=== PATIENT | male | born 1955 | race Caucasian/White ===

== ENCOUNTER 2020-05-13 15:37 | Emergency (ER) | payer MEDICAID ==
[~2020-05-13] VITALS: Ht 177.8 cm; Wt 99.8 kg
--- NOTE | 2020-05-13 15:40 | NUR ---
Placed in room 01 . Placed on teaching dietitian, blood pressure machine and pulse oximeter. To gown for exam. Side rails up.
[2020-05-13 15:45] VITALS: BP_SYST 140
--- NOTE | 2020-05-13 15:45 | NUR ---
PT CAME IN WITH CO CHEST PAIN STARTING YESTERDAY. REPORTS NO CARDIAC HISTORY. 02/12 SUBSTERNAL PAIN. REPORTS HE IS TAKING CARE OF HIS AT HOME WHO IS ILL. INCREASED STRESS/ANXIETY. NO SOB. AAOX4. V/S STABLE
--- NOTE | 2020-05-13 15:45 | NUR ---
EKG performed at by [facility]. Physician given copy of EKG for review.
--- NOTE | 2020-05-13 15:58 | NUR ---
# 18 gauge angiocath placed to RFA. Use of asceptic technique. Opsite placed over site. Blood return noted. Blood for lab drawn from site. Flushed with 10 cc of normal saline. No evidence of infiltration noted. Patient tolerated well. BLOOD SPECIMENS COLLECTED AND SENT TO THE LAB
--- NOTE | 2020-05-13 16:10 | NUR ---
XRAY AT BEDSIDE
--- NOTE | 2020-05-13 16:10 | NUR ---
Samson godwin in [facility] - 05/13/20 at 1848 by [email or web address] XRAY AT THE BEDSIDE
--- NOTE | 2020-05-13 16:10 | NUR ---
DR. VOGEL AT THE BEDSIDE EXAMINING PT
[2020-05-13 16:33] LABS: BASOPHILS % (AUTO) 0.2 % (0.0-2.0); EOSINOPHILS % (AUTO) 0.4 % (0.0-4.0); HEMATOCRIT 47.1 % (36-54); HEMOGLOBIN 16.4 g/dL (14.0-18.0); LYMPHOCYTES # (AUTO) 1.2 K/uL (1.0-5.5); LYMPHOCYTES % (AUTO) 14.1 % (20.5-51.5); MEAN CORPUSCULAR HEMOGLOBIN 33 pg (27-31); MEAN CORPUSCULAR HGB CONC 35 % (32-36); MEAN CORPUSCULAR VOLUME 96 fL (79.0-98.0); MONOCYTES # (AUTO) 0.5 K/uL (0.0-1.0); MONOCYTES % (AUTO) 5.9 % (1.7-9.3); NEUTROPHILS % (AUTO) 79.4 % (40.0-70.0); PLATELET COUNT (AUTO) 203 K/uL (130-430); RED BLOOD CELL COUNT(AUTO) 4.92 MIL/uL (4.2-6.2); RED CELL DISTRIBUTION WIDTH 14.2 % (9.0-15.0); WHITE BLOOD COUNT (AUTO) 8.8 K/uL (4.8-10.8)
--- NOTE | 2020-05-13 16:50 | NUR ---
Patient resting quietly. No acute distress noted. Vital signs within normal range.
[2020-05-13 17:01] LABS: POTASSIUM 3.1 mmol/L (3.5-5.1)
[2020-05-13 17:02] LABS: CALCIUM 9.3 mg/dL (8.4-11.0)
[2020-05-13 17:03] LABS: ALBUMIN 3.9 g/dL (3.4-4.8); CREATININE 1.1 mg/dL (0.55-1.30); TOTAL BILIRUBIN 0.5 mg/dL (0.0-1.0)
--- NOTE | 2020-05-13 17:50 | NUR ---
Patient given written and verbal discharge instructions and verbalizes understanding. ER MD discussed with patient the results and treatment provided. Patient in stable condition. ID arm band removed. IV catheter removed intact and dressing applied, no active bleeding. Rx of ASPIRIN given. Patient educated on pain management and to follow up with PMD. Pain Scale 0/10. Opportunity for questions provided and answered. Medication side effect fact sheet provided.
[2020-05-13 17:52] VITALS: BP_SYST 116
== END 2020-05-13 17:52 | disposition home or self-care (01) ==
LOC: SED 15:37
DX: R07.89 Other chest pain (principal)
CPT/HCPCS: 36415; 71045; 80053; 80061; 84484; 85025; 93005; 99285